=== PATIENT | female | born 1945 | race Caucasian/White ===

== ENCOUNTER 2020-08-05 11:39 | Emergency (ER) | payer MEDICARE, OTHER ==
[~2020-08-05] VITALS: Ht 162.6 cm; Wt 81.6 kg
[~2020-08-05 11:39] MED LIST: AMLO5TAB4 PO; ASPI-482 PO; BUPR75TA5 PO; CIPR500T94 PO; ESOM40CA25 PO; LISI-379 PO; METO25TA2 PO; METR500T PO; POTA10TA12 PO; TRIA1TAB5 PO
--- NOTE | 2020-08-05 12:27 | PHYS DOC ---
Past History Past Medical History: Gallstones, Hypertension, Pancreatitis, Other Past Surgical History: Cholecystectomy Alcohol Use: None Drug Use: None General Adult EDM: Chief Complaint: MECHANICAL FALL HPI: HPI: Patient is a 74-year-old female presents after a fall down 6 stairs at home. Patient states that she was attempting to carry a wood and table down the stairs when it slipped down the stairs and landed on top of her. Daughter states that mom had possibly been laying on the floor for 2 hours prior to anyone knowing. Patient has unknown loss of consciousness. Patient is complaining of head, neck, back, abdominal, knee pain. Patient takes 81 mg aspirin daily. Patient is alert and oriented but having trouble finding her words.Patient has history of hypertension, vertigo, GERD.. Review of Systems: Review of Systems: Constitutional: Denies fever or chills Eyes: Denies change in visual acuity HENT: Denies sore throat or nasal congestion Respiratory: Denies cough or shortness of breath Cardiovascular: Denies chest pain or edema GI: Reports abdominal pain,. Denies nausea, vomiting, bloody stools or diarrhea : Denies dysuria Musculoskeletal: Reports back pain, neck pain. Integument: Denies rash Neurologic: Reports headache. Denies focal weakness or sensory changes Endocrine: Denies polyuria or polydipsia Lymphatic: Denies swollen glands Psychiatric: Denies depression or anxiety Allergies: Allergies: Allergies Coded Allergies Type Severity Reaction Last Updated Verified No Known Drug Allergies 05/06/15 No Physical Exam: PE: Constitutional: Well developed, well nourished, no acute distress, non-toxic appearance. [] HENT: Normocephalic, atraumatic, bilateral external ears normal, oropharynx moist, no oral exudates, nose normal. [] Eyes: PERRLA, EOMI, conjunctiva normal, no discharge. [] Neck: Normal range of motion, left-sided and posterior tenderness Cardiovascular:Heart rate regular rhythm, no murmur [] Lungs & Thorax: Bilateral breath sounds clear to auscultation [] Abdomen: Bowel sounds normal, soft, abdominal tenderness Skin: Warm, dry, no erythema, no rash. [] Back: Thoracic, lumbar tenderness, no CVA tenderness. [] Extremities: Bilateral knee tenderness, ROM intact, no edema. [] Neurologic: Alert and oriented X 3, normal motor function, normal sensory function, no focal deficits noted. [] Psychologic: Affect normal, judgement normal, mood normal. [] EKG: EKG: [] Radiology/Procedures: Radiology/Procedures: []STUDY: 1. CT chest with contrast 2. CT abdomen/pelvis with contrast 3. CT thoracic spine without contrast 4. CT lumbar spine without contrast INDICATION: Fall. COMPARISON: CT chest 05/06/2015; CT abdomen/pelvis 04/18/[address] imaging of the chest, abdomen and pelvis performed after the intravenous administration of iodinated contrast. Coronal and sagittal reformats were obtained. The data obtained from the initial acquisition was utilized to reconstruct smaller yyuxv-[id number]-mbbv sequences through the thoracic and lumbar spine. One or more of the following individualized dose reduction techniques were utilized for this examination: 1. Automated exposure control 2. Adjustment of the mA and/or kV according to patient size 3. Use of iterative reconstruction technique. FINDINGS: CT CHEST: No acute injury to the thoracic aorta. No retrosternal hematoma, pericardial effusion or pneumomediastinum. Aberrant right subclavian artery. The left vertebral artery originates from the arch. Multifocal atheromatous plaque. Small hiatal hernia. Mild circumferential wall thickening of the distal esophagus. A consideration is chronic reflux. No adenopathy by size criteria at the mediastinum or hailey. No pneumothorax. No concerning nodule based on size. Mild atelectasis. Patent central airways. One centimeter right thyroid nodule not meeting size criteria for dedicated follow-up. No axillary adenopathy. Contusive injury along the left paramidline back, image 83 series 4. No displaced rib fracture. No acute fracture at the shoulder girdles or involving the sternum. Thoracic spine detailed separately. CT ABDOMEN/PELVIS: No acute injury of the liver, spleen or kidneys. Surgically absent gallbladder. Dilated biliary tree also present on the 2014 comparison typical of reservoir effect. No pancreatic ductal dilatation or discrete mass. Prominent duodenal diverticulum at the pancreatic head/uncinate similar to the comparison. Unchanged adrenal gland morphology. Several bilateral renal cystic foci the larger of which appear simple. The smaller foci are not fully characterized but statistically most likely benign. No hydronephrosis. Unremarkable urinary bladder. There may be a small fundal fibroid, image 108 series 7. Tiny left ov reyna cyst measuring 0.9 cm. Colonic diverticulosis without diverticulitis. Normal appendix. No evidence for trauma to the small bowel. The duodenum and proximal jejunum are mildly ectatic but there is no transitioning to suggest obstruction. Poorly evaluated stomach on account of underdistention. Multifocal calcified and noncalcified atheromatous plaque. No acute major vascular injury. No lymphadenopathy. No free fluid or pneumoperitoneum. No acute fracture seen throughout the pelvis. Lumbar spine described separately. CT THORACIC SPINE: No acute fracture or malalignment seen throughout the thoracic spine. Osteopenia no severe osseous central canal or neural foraminal stenosis. Mild scattered facet degeneration. No disc space collapse. CT LUMBAR SPINE: Transitional lumbosacral anatomy with partial sacralization of L5. No concerning vertebral body height loss. No traumatic malalignment. Intact posterior elements. Facet arthrosis greatest at L4-L5. Probable right lateral recess stenosis at L4-L5. No evidence for significant central canal narrowing. IMPRESSION: CT CHEST: 1. Contusive injury at the left paramidline lower back. No associated intrathoracic sequela of trauma or fracture. 2. Chronic findings detailed in the body the report CT ABDOMEN/PELVIS: 1. No sequela of trauma seen below the diaphragm. 2. Nonemergent findings outlined above. CT THORACIC SPINE: 1. No acute fracture or traumatic malalignment. CT LUMBAR SPINE: 1. No acute fracture or traumatic malalignment. Electronically signed by: VIVIANA GOMEZ MD (08/05/2020 2:57 PM) [facility] of the head without contrast 08/05/2020 Clinical History: Fall. Head injury.. Technique: Unenhanced, contiguous, 5 mm axial sections were obtained through the head. One or more of the following individualized dose reduction techniques were utilized for this study: 1. Automated exposure control. 2. Adjustment of the mA and/or kV according to patient size. 3. Use of iterative reconstruction technique. Findings: There is generalized parenchymal atrophy. Areas of decreased attenuation is seen within the white matter of both cerebral hemispheres consistent with areas of small vessel ischemic disease. No acute parenchymal abnormality is seen. No extra-axial fluid collection is noted. No skull fracture is seen. Impression: No acute intracranial abnormality is seen. CT scan of the facial bones without contrast 08/05/2020 Clinical history: Fall with facial injury. Technique: Unenhanced, contiguous, 0.625 mm axial sections were obtained through the facial bones and orbits. 3 mm reconstructed sagittal, axial and coronal i mages were obtained. One or more of the following individualized dose reduction techniques were utilized for this study: 1. Automated exposure control. 2. Adjustment of the mA and/or kV according to patient size. 3. Use of iterative reconstruction technique. Findings: No facial bone fracture is seen. Both orbits are intact. The paranasal sinuses are clear. No air-fluid level is seen. The patient is edentulous. Impression: No facial bone or orbital fracture is seen. Electronically signed by: Adiel Hennessy MD (08/05/2020 2:48 PM) [id number] view study of both knees Clinical indications: Fall and pain Right knee: No acute fracture or dislocation or lytic process is seen. There is a small right knee joint effusion. Bicompartmental primary degenerative osteoarthritis of the right knee is seen moderately involving the medial tibiofemoral joint compartment and mildly involving the patellofemoral joint compartment.. Small radiopaque loose bodies are seen within the right knee. Left knee: No acute fracture or dislocation or lytic process is seen. No left knee joint effusion is seen. Mild bicompartmental primary degenerative osteoarthritis of the patellofemoral joint and the medial tibiofemoral joint compartment is seen. IMPRESSION: No acute fracture. Primary degenerative osteoarthritis of both knees. Electronically signed by: Lon Quach MD (08/05/2020 3:11 PM) [id number] Heart Score: C/O Chest Pain: No Risk Factors: Risk Factors: DM, Current or recent (<one month) smoker, HTN, HLP, family history of CAD, obesity. Risk Scores: Score 0 - 3: 2.5% MACE over next 6 weeks - Discharge Home Score 4 - 6: 20.3% MACE over next 6 weeks - Admit for Clinical Observation Score 7 - 10: 72.7% MACE over next 6 weeks - Early Invasive Strategies Course & Med Decision Making: Course & Med Decision Making Pertinent Labs and Imaging studies reviewed. (See chart for details) [] 74-year-old female presents after a fall down 6 stairs at home. Patient was attempting to move a solid wood in table when it slipped and fell on top of her. Patient has a hematoma to anterior, left portion of forehead. Patient is also reporting neck, back tenderness. Patient is unsure if she lost consciousness and is slow to answering questions and finding her words. Patient is a alert and oriented. Patient is also reporting abdominal pain and bilateral knee pain. Patient was able to ambulate to the car with help from her daughter. Patient takes 81 mg of aspirin a day. CT head, neck, maxillofacial ordered to rule out fracture or intracranial bleeding. CT of abdomen and chest, bilateral knees ordered to rule out acute abnormalities. Morphine given for pain. Patients blood pressure was 217/116. Patient denies taking any of her blood pressure medications this morning. Patient given Metoprolol and Triameterene/HCTZ. CT chest negative, CT abdomen pelvis negative. CT head maxillofacial negative for acute abnormalities or intracranial bleeding. CT cervical, thoracic, lumbar negative for acute abnormalities. X-ray of bilateral knee is negative for fracture. All labs are unremarkable. Troponin is negative. Repeat blood pressure after administering daily hypertension meds was 176/78. Gave patient and daughter strict return precautions. Patient is going to follow-up with her PCP tomorrow. Advised patient she can take ibuprofen and Tylenol at home for any discomfort that she may have. Lico Disclaimer: Lico Disclaimer: This electronic medical record was generated, in whole or in part, using a voice recognition dictation system. Departure Departure: Impression: Primary Impression: Fall Qualified Codes: W19.XXXA - Unspecified fall, initial encounter Disposition: HOME / SELF CARE / HOMELESS Condition: STABLE Referrals: MINA GOMES DO (PCP) Patient Instructions: Concussion and Brain Injury, [id number]-[id number], Fall Prevention and Home Safety, [id number] Additional Instructions: You were seen in the emergency room after a fall at home. CT of your head, neck, back, abdomen were all negative for any acute abnormalities or intracranial bleeding. We also x-rayed your knees due to bilateral knee pain from the fall. X-rays were both negative for any acute abnormalities. You can take ibuprofen and Tylenol at home for any discomfort you may have you will probably have an increase in pain and soreness the next few days. If you start vomiting, have an altered mental status, issues with your balance please return to the emergency room to be seen. Otherwise please call your PCP tomorrow and make a follow-up appointment. EMERGENCY DEPARTMENT GENERAL DISCHARGE INSTRUCTIONS Thank you for coming to [facility] (ED) today and trusting us with you care. We trust that you had a positivie experience in our Emergency Department. If you wish to speak to the department management, you may call the director at . YOUR FOLLOW UP INSTRUCTIONS ARE FOLLOWS: 1. Do you have a private Doctor? If you do not have a private doctor, please ask for a resource list of physicians or clinics that may be able to assist you with follow up care. 2. The Emergency Physician has interpreted your x-rays. The X-Ray specialist will also review them. If there is a change in the findings, you will be notified in 48 hours when at all possible. 3. A lab test or culture has been done, your results will be reviewed and you will be notified if you need a change in treatment. ADDITIONAL INSTRUCTIONS AND INFORMATION: 1. Your care today has been supervised by a physician who is specially trained in emergency care. Many problems require more than one evaluation for a complete diagnosis and treatment. We recommend that you schedule your follow up appointment as recommended to ensure complete treatment of you illness or injury. If you are unable to obtain follow up care and continue to have a problem, or if your condition worsens, we recommend that you return to the ED. 2. We are not able to safely determine your condition over the phone nor are we able to give sound medical advice over the phone. For these safety reasons, if you call for medical advice we will ask you to come to the ED for further evaluation. 3. If you have any questions regarding these discharge instructions please call the ED at [phone]. SAFETY INFORMATION: In the interest of safety, wellness, and injury prevention; we encourage you to wear your sealbelt, if you smoke; quite smoking, and we encourage family to use a protective helmet for bicycling and other sporting events that present an increased risk for head injury. IF YOUR SYMPTOMS WORSEN OR NEW SYMPTOMS DEVELOP, OR YOU HAVE CONCERNS ABOUT YOUR CONDITION; OR IF YOUR CONDITION WORSENS WHILE YOU ARE WAITING FOR YOUR FOLLOW UP APPOINTMENT; EITHER CONTACT YOUR PRIMARY CARE DOCTOR, THE PHYSICIAN WHOSE NAME AND NUMBER YOU WERE GIVEN, OR RETURN TO THE ED IMMEDIATELY. DIEGO HAYES APRN August 05, 2020 12:27
[2020-08-05] MEDS ORDERED: CONTRAST GIVEN. MC PRN (12:30)
[2020-08-05] MEDS ORDERED: IOHEXOL 300 MG/ML 75 ML VIAL. IV ONE (12:30)
[2020-08-05] MEDS: MORPHINE SULFATE 4 MG/ML DISP.SYRIN. IV ONE ×3 (12:53→16:19)
[2020-08-05 13:13] LABS: BASO % 1 % (0-3); EOS % 1 % (0-3); LYMPH # 1.2 x10^3/uL (1.0-4.8); LYMPH % 20 % (24-48); MEAN CORPUSCULAR HEMOGLOBIN 29 pg (25-35); MEAN CORPUSCULAR HGB CONC 33 g/dL (31-37); MEAN CORPUSCULAR VOLUME 87 fL (79-100); MONO # 0.5 x10^3/uL (0.0-1.1); MONO % 9 % (0-9); NEUT # 4.2 x10^3uL (1.8-7.7); NEUT % 70 % (31-73); PLATELET COUNT 175 x10^3/uL (140-400); RED BLOOD COUNT 4.47 x10^6/uL (3.50-5.40); RED CELL DISTRIBUTION WIDTH 14.2 % (11.5-14.5)
[2020-08-05 13:16] LABS: CALCIUM 9.1 mg/dL (8.5-10.1); CREATININE 0.8 mg/dL (0.6-1.0); GFR 69.7; POTASSIUM 3.5 mmol/L (3.5-5.1)
[2020-08-05 13:22] LABS: ALBUMIN 3.6 g/dL (3.4-5.0); ALBUMIN/GLOBULIN RATIO 1.1 (1.0-1.7); TOTAL PROTEIN 6.9 g/dL (6.4-8.2)
[2020-08-05] MEDS ORDERED: ONDANSETRON PF 4 MG/2 ML VIAL. ONE (13:51)
[2020-08-05] MEDS: ONDANSETRON PF 4 MG/2 ML VIAL. IVP ONE ×3 (14:29→16:19)
--- NOTE | 2020-08-05 14:50 | RAD ---
CT scan of the head without contrast 08/05/2020 Clinical History: Fall. Head injury.. Technique: Unenhanced, contiguous, 5 mm axial sections were obtained through the head. One or more of the following individualized dose reduction techniques were utilized for this study: 1. Automated exposure control. 2. Adjustment of the mA and/or kV according to patient size. 3. Use of iterative reconstruction technique. Findings: There is generalized parenchymal atrophy. Areas of decreased attenuation is seen within the white matter of both cerebral hemispheres consistent with areas of small vessel ischemic disease. No acute parenchymal abnormality is seen. No extra-axial fluid collection is noted. No skull fracture i s seen. Impression: No acute intracranial abnormality is seen. CT scan of the facial bones without contrast 08/05/2020 Clinical history: Fall with facial injury. Technique: Unenhanced, contiguous, 0.625 mm axial sections were obtained through the facial bones and orbits. 3 mm reconstructed sagittal, axial and coronal images were obtained. One or more of the following individualized dose reduction techniques were utilized for this study: 1. Automated exposure control. 2. Adjustment of the mA and/or kV according to patient size. 3. Use of iterative reconstruction technique. Findings: No facial bone fracture is seen. Both orbits are intact. The paranasal sinuses are clear. N o air-fluid level is seen. The patient is edentulous. Impression: No facial bone or orbital fracture is seen. Electronically signed by: Adiel Hennessy MD (08/05/2020 2:48 PM) [id number]
--- NOTE | 2020-08-05 14:53 | RAD ---
CT scan of the cervical spine without contrast 08/05/2020 Clinical history: Fall with neck injury. Technique: Unenhanced, contiguous, 0.625 mm axial sections were obtained through the cervical spine. 2.5 mm reconstructed axial and 2 mm coronal and sagittal reconstructed images were obtained. One or more of the following individualized dose reduction techniques were utilized for this study: 1. Automated exposure control. 2. Adjustment of the mA and/or kV according to patient size. 3. Use of iterative reconstruction technique. Findings: Sagittal and coronal reconstructed images demonstrate straightening of the normal cervical lordosis. Degenerative changes consisting of disc space narrowing, vertebral endplate sclerosis and m ild to moderate anterior and posterior vertebral body osteophyte formation are seen involving predomi nantly the C5-6 and C6-7 disc spaces. No fracture or subluxation of the cervical vertebrae is seen. Degenerative changes are seen involving the uncovertebral and facet joints throughout the cervical disc spaces. Impression: No fracture or subluxation of the cervical vertebra is identified. Electronically signed by: Adiel Hennessy MD (08/05/2020 2:51 PM) [id number]
--- NOTE | 2020-08-05 14:59 | RAD ---
STUDY: 1. CT chest with contrast 2. CT abdomen/pelvis with contrast 3. CT thoracic spine without contrast 4. CT lumbar spine without contrast INDICATION: Fall. COMPARISON: CT chest 05/06/2015; CT abdomen/pelvis 04/18/[address] imaging of the chest, abdomen and pelvis performed after the intravenous administration of iodinated contrast. Coronal and sagittal reformats were obtained. The data obtained from the initial acquisition was utilized to reconstruct smaller ejegi-hu-udxp sequences through the thoracic and lumbar spine. One or more of the following individualized dose reduction techniques were utilized for this examinat ion: 1. Automated exposure control 2. Adjustment of the mA and/or kV according to patient size 3. Use of iterative reconstruction technique. FINDINGS: CT CHEST: No acute injury to the thoracic aorta. No retrosternal hematoma, pericardial effusion or pneumomedias tinum. Aberrant right subclavian artery. The left vertebral artery originates from the arch. Multifoc al atheromatous plaque. Small hiatal hernia. Mild circumferential wall thickening of the distal esophagus. A consideration is chronic reflux. No adenopathy by size criteria at the mediastinum or hailey. No pneumothorax. No concerning nodule based on size. Mild atelectasis. Patent central airways. One centimeter right thyroid nodule not meeting size criteria for dedicated follow-up. No axillary ad enopathy. Contusive injury along the left paramidline back, image 83 series 4. No displaced rib fracture. No acute fracture at the shoulder girdles or involving the sternum. Thorac ic spine detailed separately. CT ABDOMEN/PELVIS: No acute injury of the liver, spleen or kidneys. Surgically absent gallbladder. Dilated biliary tree also present on the 2014 comparison typical of reservoir effect. No pancreatic ductal dilatation or d iscrete mass. Prominent duodenal diverticulum at the pancreatic head/uncinate similar to the comparis on. Unchanged adrenal gland morphology. Several bilateral renal cystic foci the larger of which appea r simple. The smaller foci are not fully characterized but statistically most likely benign. No hydro nephrosis. Unremarkable urinary bladder. There may be a small fundal fibroid, image 108 series 7. Tin y left ovarian cyst measuring 0.9 cm. Colonic diverticulosis without diverticulitis. Normal appendix. No evidence for trauma to the small b owel. The duodenum and proximal jejunum are mildly ectatic but there is no transitioning to suggest o bstruction. Poorly evaluated stomach on account of underdistention. Multifocal calcified and noncalcified atheromatous plaque. No acute major vascular injury. No lymphad enopathy. No free fluid or pneumoperitoneum. No acute fracture seen throughout the pelvis. Lumbar spine described separately. CT THORACIC SPINE: No acute fracture or malalignment seen throughout the thoracic spine. Osteopenia no severe osseous ce ntral canal or neural foraminal stenosis. Mild scattered facet degeneration. No disc space collapse. CT LUMBAR SPINE: Transitional lumbosacral anatomy with partial sacralization of L5. No concerning vertebral body height loss. No traumatic malalignment. Intact posterior elements. Facet arthrosis greatest at L4-L5. Probable right lateral recess stenosis at L4-L5. No evidence for signif icant central canal narrowing. IMPRESSION: CT CHEST: 1. Contusive injury at the left paramidline lower back. No associated intrathoracic sequela of traum a or fracture. 2. Chronic findings detailed in the body the report CT ABDOMEN/PELVIS: 1. No sequela of trauma seen below the diaphragm. 2. Nonemergent findings outlined above. CT THORACIC SPINE: 1. No acute fracture or traumatic malalignment. CT LUMBAR SPINE: 1. No acute fracture or traumatic malalignment. Electronically signed by: VIVIANA GOMEZ MD (08/05/2020 2:57 PM) [facility]
[2020-08-05] MEDS: METOPROLOL SUCC 24HR ER 25 MG TAB.ER.24H. PO ONE (15:11)
[2020-08-05] MEDS: TRIAMTERENE/HCTZ 75/50MG TABLET. PO ONE (15:13)
--- NOTE | 2020-08-05 15:14 | RAD ---
3 view study of both knees Clinical indications: Fall and pain Right knee: No acute fracture or dislocation or lytic process is seen. There is a small right knee lane int effusion. Bicompartmental primary degenerative osteoarthritis of the right knee is seen moderatel y involving the medial tibiofemoral joint compartment and mildly involving the patellofemoral joint c ompartment.. Small radiopaque loose bodies are seen within the right knee. Left knee: No acute fracture or dislocation or lytic process is seen. No left knee joint effusion is seen. Mild bicompartmental primary degenerative osteoarthritis of the patellofemoral joint and the me dial tibiofemoral joint compartment is seen. IMPRESSION: No acute fracture. Primary degenerative osteoarthritis of both knees. Electronically signed by: Lon Quach MD (08/05/2020 3:11 PM) [id number]
[2020-08-05 16:22] LABS: BILIRUBIN,URINE NEG (NEG); CLARITY,URINE CLEAR; COLOR,URINE YELLOW; GLUCOSE,URINE NEG (NEG)
[2020-08-05 16:23] LABS: NITRITE,URINE NEG (NEG); UROBILINOGEN,URINE 0.2 mg/dL (0.2 mg/dL)
[2020-08-05 16:27] VITALS: BP 176/98
[2020-08-05 16:34] LABS: BACTERIA,URINE MANY /HPF (0-FEW); RBC,URINE 0 /HPF (0-2); SQUAMOUS EPITHELIAL CELL,UR OCC /LPF; WBC,URINE 0 /HPF (0-4)
--- NOTE | 2020-08-05 18:53 | EKG ---
[address] [address] Test Date: 2020-08-05 Test Time: 12:31:32 Pat Name: XIN BURKETT Department: Room: Gender: F Anesthesiologist/Physician: MOSHE : 1945 Requested By: DIEGO HAYES Order Number: [id number] Reading MD: Milo Schmitt Measurements Intervals [place] Rate: 66 P: 90 AR: 182 QRS: 26 QRSD: 84 T: 22 QT: 454 QTc: 478 Interpretive Statements SINUS RHYTHM VENTRICULAR PREMATURE COMPLEX(ES) PROLONGED QT ABNORMAL ECG Electronically Signed On 08-06-2020 15:03:07 CDT by Milo Schmitt
== END 2020-08-05 17:08 | disposition home or self-care (01) ==
LOC: ER 11:39
DX: R51.9 Headache, unspecified (principal); M54.2 Cervicalgia; R10.9 Unspecified abdominal pain; M54.6 Pain in thoracic spine; M54.5 Low back pain; M25.561 Pain in right knee; M25.562 Pain in left knee; I10 Essential (primary) hypertension; K21.9 Gastro-esophageal reflux disease without esophagitis; W10.8XXA Fall (on) (from) other stairs and steps, initial encounter; Y93.89 Activity, other specified; Y92.89 Other specified places as the place of occurrence of the external cause; Y99.8 Other external cause status
CPT/HCPCS: 36415; 70450; 70486; 71260; 72125; 72128; 72131; 73562; 74177; 80053; 81001; 84484; 85025; 87086; 93005; 96374; 96375; 96376; 99285; J2270; J2405